=== PATIENT | female | born 1945 | race Caucasian/White ===

== ENCOUNTER 2016-10-15 05:14 | Inpatient (IN) ==
[2016-10-15] MEDS ORDERED: VANCOMYCIN INJ 1,000 MG in SODIUM CHLORIDE 0.9% 250 ML IV ONE (06:00)
[2016-10-15] MEDS ORDERED: ceFAZolin 1,000 MG VIAL ONE (06:31)
[2016-10-15] MEDS ORDERED: VANCOMYCIN 1,000 MG VIAL ONE (06:31)
[2016-10-15] MEDS ORDERED: SODIUM CHLORIDE 0.9% 100 ML IV ONE (06:31)
--- NOTE | 2016-10-15 06:52 | History and Physical Update ---
History and Physical Update - History and Physical H&P was reviewed, the patient examined and there: are no changes in the patients condition since last H&P was completed.
[2016-10-15] MEDS ORDERED: ONDANSETRON 4 MG/2 ML VIAL IV PRN (06:59)
[2016-10-15] MEDS ORDERED: NALOXONE 0.4 MG/ML VIAL IV PRN (06:59)
[2016-10-15] MEDS ORDERED: PROMETHAZINE 25 MG/1 ML VIAL IM PRN (06:59)
[2016-10-15] MEDS ORDERED: LACTULOSE 20 GM/30 ML UDCUP PO PRN (06:59)
[2016-10-15] MEDS ORDERED: MORPHINE 2 MG/1 ML SYRINGE IV PRN (06:59)
[2016-10-15] MEDS ORDERED: BISACODYL 10 MG SUPP RECTAL PRN (06:59)
[2016-10-15] MEDS ORDERED: MAGNESIUM HYDROXIDE SUSP 30 ML UDCUP PO PRN (06:59)
[2016-10-15] MEDS ORDERED: diphenhydrAMINE CAP 25 MG CAPSULE PO PRN (06:59)
[2016-10-15] MEDS ORDERED: NITROGLYCERIN SL 0.4 MG TABLET SL PRN (07:02)
[2016-10-15] MEDS ORDERED: MECLIZINE 25 MG TABLET PO PRN (07:02)
[2016-10-15] MEDS ORDERED: ROPIVACAINE 0.5% 30 ML VIAL ONE (07:20)
[2016-10-15] MEDS: LACTATED RINGERS 1,000 ML IV SCH ×3 (07:22→21:21)
[2016-10-15] MEDS ORDERED: MIDAZOLAM 2 MG/2 ML VIAL ONE (08:51)
[2016-10-15] MEDS ORDERED: fentaNYL 100 MCG/2 ML VIAL ONE (08:51)
[2016-10-15] MEDS ORDERED: SODIUM CHLORIDE 0.9% 200 ML IV ONE (08:51)
[2016-10-15] MEDS ORDERED: ACETAMINOPHEN 1,000 MG/100 ML VIAL IV ONE (08:51)
--- NOTE | 2016-10-15 09:11 | XRay Report ---
Exam: XR knee 2V RT Date: 10/15/2016 7:02 AM Indication: Follow-up total knee replacement Comparison: None Technical: AP lateral Findings: Total knee prosthesis has been placed. Osteotomy in the posterior aspect patella. Surgical clips are present and surgical drain with vacuum Hemovac present. Long leg immobilizer is present. No obvious fracture present. The distal femoral and tibial components are intact. Small amount of subcutaneous air present. Impression: 1. Satisfactory total knee replacement 2. Surgical drains and leg immobilizer noted. PROCEDURE INTERPRETED AT [facility] ([facility]) DEPARTMENT OF RADIOLOGY Final Report Signed by: Dr. Darrell Castillo
[2016-10-15] MEDS: MORPHINE PCA 30 MG/30 ML SYRINGE IV SCH (09:15)
[2016-10-15 11:01] LABS: Basophils % 0.3 % (0.0-0.8); Eosinophils # 0.1 10*3/uL (0.0-0.87); Eosinophils % 1.2 % (0.00-10.9); Hematocrit 35.3 VOL% (35.7-47.0); Hemoglobin 11.8 GM/DL (12.0-16.0); Immature Granulocytes % 0.6 %; Immature Granulocytes Absolute 0.04 #; Lymphocytes % 15.1 % (21.3-54.2); Mean Corpuscular HGB Conc 33.4 GM/DL (32-36); Mean Corpuscular Hemoglobin 32 PG (27-34); Mean Corpuscular Volume 94.6 FL (87-102); Mean Platelet Volume 10.4 FL (9.6-12.0); Monocytes # 0.5 10*3/uL (0.11-0.8); Monocytes % 7.6 % (1.7-12.7); Neutrophils # 4.9 10*3/uL (1.4-7.4); Neutrophils % 75.2 % (38.7-73.9); Platelet Count 130 T/CUMM (130-400); Red Blood Count 3.73 MC/CUMM (3.8-5.5); Red Cell Distribution Width 13.6 % (9.3-17.3); White Blood Count 6.5 T/CUMM (4-12)
[2016-10-15] MEDS: ROSUVASTATIN 10 MG TABLET PO SCH (11:08)
[2016-10-15] MEDS: MELOXICAM 7.5 MG TABLET PO SCH ×2 (11:09→16:25)
[2016-10-15] MEDS: PREGABALIN 75 MG CAPSULE PO SCH ×3 (11:09→21:19)
[2016-10-15] MEDS: ASPIRIN EC 81 MG TABLET PO SCH (11:09)
[2016-10-15] MEDS: TICAGRELOR 90 MG TABLET PO SCH ×2 (11:09→21:19)
[2016-10-15] MEDS: PANTOPRAZOLE 40 MG TABLET PO SCH ×2 (11:09→21:19)
[2016-10-15] MEDS: DOCUSATE SODIUM 100 MG CAPSULE PO SCH ×2 (11:09→21:19)
[2016-10-15 11:30] LABS: Calcium 8.5 MG/DL (8.5-10.1); Osmolality,Calculated 280.4 MOS/KG (273-304); Potassium 5.2 MMOL/L (3.5-5.1)
[2016-10-15 11:33] LABS: Hypochromasia 1+; Microcytosis Slight
--- NOTE | 2016-10-15 13:17 | Cardiology Consult Note ---
Ash Malcolm April RN, am scribing for, and in the presence of, Cody Amor MD 13:16. Assessment and Plan - Time spent with patient Time spent with patient: Greater than 30 minutes (Due to assessment, planning, documentation, medication review) (1) Status post right knee replacement Status: Acute Assessment and plan: Doing well from a cardiac standpoint. Current Visit: Yes (2) CAD (coronary artery disease) Status: Chronic Assessment and plan: His had previous intervention and recent preoperative stress testing revealed no evidence for ischemia. Current Visit: Yes Qualifiers: Coronary Disease-Associated Artery/Lesion type: [place] artery [place] vs. transplanted heart: [place] heart Associated angina: without angina Qualified Code(s): I25.10 - Atherosclerotic heart disease of [place] coronary artery without angina pectoris (3) Hypercholesterolemia Status: Chronic Assessment and plan: On statin drugs which need to be continued. Current Visit: Yes (4) Hypertension Status: Chronic Assessment and plan: Blood pressure stable post surgery. Current Visit: No History of Present Illness - Data of Consult Patient: known to practice within the last 3 years Consult date: 10/15/16 Requesting Physician: Ariel Huynh Jr. - Consult Narrative Reason for consult: Follow postoperatively History of present illness: Benzene Operator: Dr. Strong Ms. Wayne is a 71 year old female who is routinely followed by Dr. Strong with a history of CAD, hypertension, GERD, dyslipidemia, and hypothyroidism. She had proximal and mid RCA stent August 11, 2014 and proximal LAD stent August 24, 2014. She had a normal stress test done in Dr. Strong's office September 18, 2016 in anticipation of right knee replacement. Carotid ultrasound done in Dr. Strong's office September 23, 2016 with 1-39% stenosis in the proximal right and left internal carotid arteries. Dr. Strong that should be low risk for the planned surgery. Other surgical history includes cholecystectomy, hysterectomy , bilateral cataract, gastric bypass, tonsillectomy, appendectomy, amputation of toe on right foot. Family history is positive for father with [place]. She reports she does not smoke, stating she quit about 40 years ago. She was admitted today for planned right knee replacement with Dr. Lino Donnelly. We are seeing her postoperatively. She denies any chest pain, shortness of breath, palpitations, or dizziness. Dressing to right knee is dry and intact. Her blood pressure has been on the low side since surgery. Currently it is 88/ 50, she is tolerating this well. Her home medications have been restarted. She is doing well has eaten some lunch. Vital signs remained stable. CC: Ariel Huynh Jr., MD - Home Medications and Allergies Home Medications: Home Medications Medication Instructions Recorded Confirmed Type Nitroglycerin Sl Tab [Nitrostat] 0.4 mg SL Q5M PRN #30 tablet 08/11/14 10/15/16 Rx Ticagrelor [Brilinta] 90 mg PO BID #60 tablet 08/11/14 10/15/16 Rx Meclizine [Antivert] 25 mg PO QID PRN #0 tablet 10/20/14 10/15/16 Rx Aspirin EC Tab 81 mg PO DAILY 12/28/14 10/15/16 History Omeprazole [Prilosec] 20 mg PO BID 03/30/15 10/15/16 History Pregabalin [Lyrica] 150 mg PO TID 03/30/15 10/15/16 History Meloxicam 7.5 mg PO BID W/MEALS #60 tablet 04/01/15 10/15/16 Rx Rosuvastatin Calcium [Crestor] 5 mg PO QOTHER DAY 10/02/16 10/15/16 History clonazePAM [Klonopin] 1 mg PO BEDTIME 10/02/16 10/15/16 History Allergies/Adverse Reactions: Allergies Allergy/AdvReac Type Severity Reaction Status Date / Time diazepam [From Valium] AdvReac Severe RASH Verified 10/15/16 06:12 duloxetine [From Cymbalta] AdvReac Severe Confusion Verified 10/15/16 06:12 - Constitutional Constitutional: Present: as per HPI - EENT Eyes: Present: requires corrective lense. Absent: blurry vision Ears: Absent: decreased hearing, ear pain Nose, mouth and throat: Present: headache(s). Absent: dysphagia, epistaxis, hoarseness, neck pain, sore throat - Cardiovascular Cardiovascular: Absent: chest pain at rest, chest pain with activity, diaphoresis, dyspnea, dyspnea on exertion, edema, radiating jaw, neck or arm pain, lightheadedness, orthopnea, palpitations - Respiratory Respiratory: Absent: cough, dyspnea, hemoptysis, dyspnea on exertion, wheezing - Gastrointestinal Gastrointestinal: Present: constipation. Absent: abdominal pain, diarrhea, hematemesis, hematochezia, melena, nausea, vomiting - Genitourinary Genitourinary: Absent: dysuria, hematuria - Musculoskeletal Musculoskeletal: Present: back pain, limited range of motion, muscle weakness - Neurological Neurological: Present: abnormal gait, frequent falls, headache(s). Absent: abnormal speech, confusion, dizziness, syncope - Psychiatric Psychiatric: Absent: anxiety, depression - Endocrine Endocrine: Present: fatigue - Hematologic/Lymphatic Hematologic/Lymphatic: Present: easy bruising. Absent: easy bleeding Medical,Surgical,& Family Hx - Medical History Cardio: History of: CAD, Hypertension Neurology: History of: Peripheral Neuropathy (feet) HEENT: History of: Eye Problem (glasses), Dental Problems (Partial Upper) Endocrine: History of: Dyslipidemia Respiratory: History of: Bronchitis (patient states every once in a while) Genitourinary: History of: Recurring Urinary Tract Infections Gastrointestinal: History of: Clostridium Difficile (x4), GERD, Hemorrhoids ( patient states she had in the past), GI Problems (gastric bypass surgery 36 years ago;Constipation) Musculoskeletal: History of: Amputation (Rt 4th Toe), Back/Neck Problems ( patient states sciatic nerve issues and had epidural from the pain clinic) Hematology: History of: Anemia (patient states history of anemia), Clotting Problems (blood clot in stomach 1986) Other: History of: MRSA (STOMACH, PSUEDOMONAS), Miscellaneous Medical Problems ( C DIFF 09/2014) - Surgical History Cardiac Surgeries: Sugical HX of: Cardiac Catheterization (5 stents) HEENT Surgeries: Surgical HX of: Eye Surgery (bilateral cataract sx), Tonsilectomy & Adenoidectomy Abdominal Surgeries: Surgical HX of: Abdominal Surgery, Appendectomy, Cholecystectomy, Colonoscopy (2014 Dr. Guevara Fecal Implant to rid C-Diff), Gastric Bypass Surgery (patient states in 1977) Reproductive Surgeries: Surgical HX of;: Breast Surgery (bx on right breast and lumpectomy), Hysterectomy (patient states in 1962) Orthopedic Surgeries: Surgical HX of;: Total Knee Replacement (Rt 10/2016) - Family History Family History: Reports;: Family Heart Disease (father) - Social History Smoking Status: Former smoker (Quit 40 years ago) Have you smoked in the last 12 months: No Frequency of Alcohol Use: None Type of Drug Use: None Marital Status: Lives With:: Spouse Functional capacity: independent ambulation Physical Examination Vital Signs Temp Pulse Resp BP Pulse Ox 97.8 F 61 16 120/55 97 10/15/16 06:23 10/15/16 06:23 10/15/16 06:23 10/15/16 06:23 10/15/16 06:23 General: Present: Appears Well, No Apparent Distress HEENT: Present: PERRL, Mucus Membranes Moist Neck: Present: Supple Neck, Midline Trachea, Bruit Cardiac: Present: Reg Rate and Rhythm, No Murmur, Bradycardia Lungs: Present: Normal Breath Sounds, No Wheeze, Rales, Rhonchi Neuro: Absent: Resting Tremor, Essential Tremor Abdomen: Present: Soft, Active Bowel Sounds, Non-Tender. Absent: Distended Skin: Absent: Rash, Suspicious Lesions Incision: Present: Incision Site (Dressing noted to right knee) Musculoskeletal: Present: Decreased Range of Motion, Pain in Joint Gait: Present: Poor Gait Extremities: Present: No Edema, Normal Upper Extr. Pulses, Normal Lower Extr. Pulses. Absent: Normal Gait Result/EKG - Labs CBC & BMP: 10/15/16 10:54 10/15/16 10:54 Lab Results: I have reviewed the past 24 hour labs Labs: Laboratory Results - last 24 hr 10/15/16 10/15/16 06:06 10:54 WBC 6.5 RBC 3.73 L Hgb 11.8 L Hct 35.3 L MCV 94.6 MCH 32 MCHC 33.4 RDW 13.6 Plt Count 130 MPV 10.4 Neut % (Auto) 75.2 H Lymph % (Auto) 15.1 L [place] % (Auto) 7.6 Eos % (Auto) 1.2 Baso % (Auto) 0.3 Neut # (Auto) 4.9 Lymph # (Auto) 1.0 L [place] # (Auto) 0.5 Eos # (Auto) 0.1 Baso # (Auto) 0.0 Immature Gran % 0.6 Nucleated RBC % 0.0 Immature Gran # 0.04 Nucleated RBCs # 0.00 Blood Type O POSITIVE Antibody Screen Negative [facility] Timothy, MD, personally performed the services described in this documentation, ascribed by Soniya Aleman RN in my presence, and it is both accurate and complete .
--- NOTE | 2016-10-15 14:04 | Operative Note ---
DATE OF SURGERY: 10/15/2016 PREOPERATIVE DIAGNOSIS: OSTEOARTHRITIS, RIGHT KNEE. POSTOPERATIVE DIAGNOSIS: OSTEOARTHRITIS, RIGHT KNEE. OPERATIVE PROCEDURE: RIGHT TOTAL KNEE ([place]) SURGEON: Ariel Huynh Jr., MD RESEARCH GEOLOGIST: Dr. Thomas. ANESTHESIA: Spinal. INDICATIONS: A 71-year-old white female with severe osteoarthritis to right knee. She has maximized conservative treatment through the years, presenting recently for reevaluation. She is not getting relief with conservative measures and presents today for elective right total knee. OPERATIVE PROCEDURE: The patient was taken to the operating room under general anesthetic, positione d in the supine position. The right lower extremity was positioned and prepped and draped in the usu al sterile manner. She received Ancef and Vancomycin preoperatively. The limb was elevated and exsa nguinated, and the tourniquet inflated to 275 mmHg. A midline incision was made over the anterior as pect of the right knee. Sharp dissection was carried down through skin and subcutaneous tissue. A m edian parapatellar arthrotomy was performed with the knee revealing extensive tricompartmental degene rative changes. Intramedullary alignment guides were used to make the appropriate cuts about the dis tere femur and proximal tibia. The femur was sized to a 4 and the tibia to a 3. A 6-mm fixed-bearing spacer was selected. The PCL was being retained. After removal of all the trial components, the pe rmanent implants were cemented in place. The patellar was resurfaced with a 35-button. After the ce ment hardened, the knee was irrigated and closed in a standard fashion using a #1 Vicryl for the arth rotomy, 2-0 Vicryl for the subcutaneous layer, and collin for skin. Tourniquet was deflated prior t o wound closure at 19 minutes. Sterile dressings were applied. She was taken to recovery room in a stable condition. ESTIMATED BLOOD LOSS: 100 cc. COMPLICATIONS: None. DRAINS: Times 2. COUNTS: Correct.
--- NOTE | 2016-10-15 14:37 | Orthopedic Progress Note ---
Orthopedics - Subjective Interval history: Postop check neurovascular intact comfortable discussed up in a.m. Exam - Constitutional Vitals: Period Temp Pulse Resp BP Sys/Burks Pulse Ox Last 24 Hr 97.5 F-97.9 F 45-68 16-18 83-132/43-72 97-100 Results - Labs CBC & BMP: 10/15/16 10:54 10/15/16 10:54
--- NOTE | 2016-10-15 18:22 | Family Practice History&Phys ---
Assessment and Plan (1) Status post right knee replacement Status: Acute Assessment and plan: Patient is status post right total knee replacement. She is presently doing well with no acute problems noted. Current Visit: Yes (2) CAD (coronary artery disease) Status: Chronic Assessment and plan: Patient's coronary artery disease is stable with present medications. We'll monitor closely. Current Visit: Yes Qualifiers: Coronary Disease-Associated Artery/Lesion type: [place] artery [place] vs. transplanted heart: [place] heart Associated angina: without angina Qualified Code(s): I25.10 - Atherosclerotic heart disease of [place] coronary artery without angina pectoris (3) Status post insertion of drug-eluting stent into left anterior descending ( LAD) artery Status: Chronic Assessment and plan: Patient is presently stable on present medications. She's had recent cardiac evaluation is being followed by cardiology Current Visit: No (4) hyperlipidemia Status: Chronic Assessment and plan: Stable on present medications Current Visit: Yes (5) Hypertension Status: Chronic Current Visit: No (6) Peripheral neuropathy Status: Chronic Assessment and plan: Patient has nondiabetic peripheral neuropathy stable on present medications Current Visit: No (7) S/P gastric bypass Status: Chronic Assessment and plan: Patient is status post gastric bypass. No problems at present Current Visit: No History of Present Illness Chief complaint: severe degenerative joint disease right knee History of present illness: Ms. Wayne is a 71 year old female Patient is a 71-year-old white female well-known to me who is now status post total right knee replacement. Patient is doing well with no acute problems noted . She denies any chest pain, shortness of breath, or other related symptoms. She does have some pain from the surgical site but controlled with present medications. I have reviewed lab and other studies. Hopefully patient will do well I will follow with you thank you Home Medications Medication Instructions Recorded Confirmed Type Nitroglycerin Sl Tab [Nitrostat] 0.4 mg SL Q5M PRN #30 tablet 08/11/14 10/15/16 Rx Ticagrelor [Brilinta] 90 mg PO BID #60 tablet 08/11/14 10/15/16 Rx Meclizine [Antivert] 25 mg PO QID PRN #0 tablet 10/20/14 10/15/16 Rx Aspirin EC Tab 81 mg PO DAILY 12/28/14 10/15/16 History Omeprazole [Prilosec] 20 mg PO BID 03/30/15 10/15/16 History Pregabalin [Lyrica] 150 mg PO TID 03/30/15 10/15/16 History Meloxicam 7.5 mg PO BID W/MEALS #60 tablet 04/01/15 10/15/16 Rx Rosuvastatin Calcium [Crestor] 5 mg PO QOTHER DAY 10/02/16 10/15/16 History clonazePAM [Klonopin] 1 mg PO BEDTIME 10/02/16 10/15/16 History Allergies Allergy/AdvReac Type Severity Reaction Status Date / Time diazepam [From Valium] AdvReac Severe RASH Verified 10/15/16 06:12 duloxetine [From Cymbalta] AdvReac Severe Confusion Verified 10/15/16 06:12 Medical,Surgical,& Family Hx - Medical History Cardio: History of: CAD, Hypertension, 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) Psychological: History of: Anxiety Disorders (Denies any current anxiety) Neurology: History of: Peripheral Neuropathy (feet) No history of: Seizures HEENT: History of: Eye Problem (glasses), Dental Problems (Partial Upper) No history of: Glaucoma Endocrine: History of: Dyslipidemia Respiratory: History of: Bronchitis (patient states every once in a while) No history of: Pneumonia (Hx Pneum Vac), Respiratory Problems (DOES NOT TAKE FLU VAC) Genitourinary: History of: Recurring Urinary Tract Infections Gastrointestinal: History of: Clostridium Difficile (x4), GERD, Hemorrhoids ( patient states she had in the past), GI Problems (gastric bypass surgery 36 years ago;Constipation) No history of: Hepatitis, Liver Problems, Polyps Musculoskeletal: History of: Amputation (Rt 4th Toe), Back/Neck Problems ( patient states sciatic nerve issues and had epidural from the pain clinic) Hematology: History of: Anemia (patient states history of anemia), Clotting Problems (blood clot in stomach 1986) Other: History of: MRSA (STOMACH, PSUEDOMONAS), Miscellaneous Medical Problems ( C DIFF 09/2014) No history of: Anesthesia Reactions, Cancer - Surgical History Cardiac Surgeries: Sugical HX of: Cardiac Catheterization (5 stents), Cardiac Surgery Thoracic Surgeries: Patient denies;: Organ Transplant Neurologic Surgeries: Patient denies: Neurologic Surgery (patient denies neurological history) HEENT Surgeries: Surgical HX of: Eye Surgery (bilateral cataract sx), Tonsilectomy & Adenoidectomy Abdominal Surgeries: Surgical HX of: Abdominal Surgery, Appendectomy, Cholecystectomy, Colonoscopy (2014 Dr. Guevara Fecal Implant to rid C-Diff), Gastric Bypass Surgery (patient states in 1977) Reproductive Surgeries: Surgical HX of;: Breast Surgery (bx on right breast and lumpectomy), Hysterectomy (patient states in 1963) Orthopedic Surgeries: Surgical HX of;: Orthopedic Surgery (RKS), Total Knee Replacement (Rt 10/2016) - Family History Family History: Reports;: Family Heart Disease (father), Family Hypertension - Social History Smoking Status: Former smoker (Quit 40 years ago) Have you smoked in the last 12 months: No Frequency of Alcohol Use: None Type of Drug Use: None Marital Status: Lives With:: Spouse Functional capacity: independent ambulation Exam - Constitutional Vitals: Period Temp Pulse Resp BP Sys/Burks Pulse Ox Last 24 Hr 97.5 F-98.1 F 45-68 16-18 83-144/43-72 97-100 General appearance: mild distress - Head Head exam: Present: normal inspection - Eye Eye exam: Present: EOMI - ENT ENT exam: Present: normal exam - Neck Neck exam: Present: normal inspection - Respiratory Respiratory exam: Present: clear to auscultation bilaterally - Cardiovascular Cardiovascular exam: Present: regular rate and rhythm - GI/Abdominal GI/Abdominal exam: Present: normal bowel sounds, soft - Extremities Exam Extremities exam: Present: other (has dressing on right leg. Full range of motion in other extremities normal pulses.) - Back Exam Back exam: Present: normal inspection - Neurological Exam Neurological exam: Present: alert, oriented X3 - Psychiatric Psychiatric exam: Present: normal affect - Skin Skin exam: Present: normal color Results - Labs CBC & BMP: 10/15/16 10:54 10/15/16 10:54
[2016-10-15] MEDS: FONDAPARINUX 2.5 MG/0.5 ML SYRINGE SUBCUT SCH (21:19)
[2016-10-15] MEDS: clonazePAM 0.5 MG TABLET PO SCH (21:19)
[2016-10-16 06:23] LABS: Basophils % 0.2 % (0.0-0.8); Eosinophils # 0.1 10*3/uL (0.0-0.87); Eosinophils % 1.3 % (0.00-10.9); Hematocrit 32.6 VOL% (35.7-47.0); Immature Granulocytes % 0.4 %; Immature Granulocytes Absolute 0.02 #; Lymphocytes # 0.9 10*3/uL (1.4-4.0); Lymphocytes % 16.4 % (21.3-54.2); Mean Corpuscular HGB Conc 33.7 GM/DL (32-36); Mean Corpuscular Hemoglobin 31 PG (27-34); Mean Corpuscular Volume 93.1 FL (87-102); Mean Platelet Volume 10.6 FL (9.6-12.0); Monocytes # 0.6 10*3/uL (0.11-0.8); Monocytes % 9.8 % (1.7-12.7); Neutrophils % 71.9 % (38.7-73.9); Platelet Count 123 T/CUMM (130-400); Red Cell Distribution Width 13.7 % (9.3-17.3); White Blood Count 5.6 T/CUMM (4-12)
[2016-10-16 06:25] LABS: Apearance,Urine CLEAR (Clear); Bacteria,Urine Occasional /HPF (Few); Bilirubin,Urine Negative (Negative); Blood, Urine Negative (Negative); Glucose,Urine (UA) Negative (Negative); Ketones,Urine Negative (Negative); Nitrite,Urine Negative (Negative); Protein,Urine Negative; RBC,Urine 1 /HPF (0-4); Urine Color Straw (Yellow); Urine Specific Gravity 1.008 (1.001-1.035); Urine Urobilinogen < 2.0 EU/DL (0.2-1.0); WBC,Urine 11 /HPF (0-6)
[2016-10-16 06:50] LABS: Calcium 8.3 MG/DL (8.5-10.1); Osmolality,Calculated 278.5 MOS/KG (273-304)
[2016-10-16 06:58] LABS: Magnesium 1.9 MG/DL (1.8-2.4); Thyroid Stimulating Hormone 0.515 uIU/ml (0.358-3.74)
[2016-10-16] MEDS: MELOXICAM 7.5 MG TABLET PO SCH ×2 (07:40→16:04)
[2016-10-16] MEDS: ASPIRIN EC 81 MG TABLET PO SCH ×2 (07:41→07:59)
[2016-10-16] MEDS: PREGABALIN 75 MG CAPSULE PO SCH ×4 (07:41→21:29)
[2016-10-16] MEDS: TICAGRELOR 90 MG TABLET PO SCH ×3 (07:41→21:29)
[2016-10-16] MEDS: DOCUSATE SODIUM 100 MG CAPSULE PO SCH ×3 (07:41→21:29)
[2016-10-16] MEDS: PANTOPRAZOLE 40 MG TABLET PO SCH ×3 (07:41→21:29)
[2016-10-16] MEDS: LACTATED RINGERS 1,000 ML IV SCH ×2 (07:42→11:21)
[2016-10-16] MEDS: MORPHINE PCA 30 MG/30 ML SYRINGE IV SCH (07:42)
--- NOTE | 2016-10-16 08:53 | Orthopedic Progress Note ---
Orthopedics - Subjective Interval history: Hemoglobin 11 discussed drain removed ready for PT neurovascular intact Exam - Constitutional Vitals: Period Temp Pulse Resp BP Sys/Burks Pulse Ox Last 24 Hr 97.5 F-100.0 F 45-80 16-18 83-144/43-72 94-100 Results - Labs CBC & BMP: 10/16/16 06:06 10/16/16 06:06
--- NOTE | 2016-10-16 13:23 | Pathology Report from [facility] ---
[facility] [place] ACCESSION # : [id number] PATIENT NAME : Beverly Espana ORDERING DR : NINA BARBER JR, MD CLINICAL HX: RT knee osteoarthritis POST-OP DX: Same SPECIMEN INFO: RT knee bone GROSS DESCRIPTION: Received in formalin labeled BEVERLY ESPANA is an aggregate of bone and cartilage measuring 8.0 x 7.5 cm. The articular surfaces are focally degenerative with large areas of subchondral eburnation seen. Heavy Equipment Supervisor tissue is submitted in one cassette. DIAGNOSIS FOR BEVERLY ESPANA: RIGHT KNEE BONE, TOTAL REPLACEMENT: Fragments of bone and cartilage with degenerative/ osteoarthritic changes. COLLECTED DATE: 10/15/2016 [facility] [place] REPORT DATE: 10/16/2016 ELECTRONICALLY SIGNED BY: Dejah De Los Santos M.D. 10/16/2016 - 11:10:52 [facility]
--- NOTE | 2016-10-16 15:58 | Cardiology Progress Note ---
Ash Malcolm April, RN, am scribing for, and in the presence of, Cody Amor MD 15:58. Assessment and Plan (1) Status post right knee replacement Status: Acute Assessment and plan: Doing well from a cardiac standpoint. Current Visit: Yes (2) CAD (coronary artery disease) Status: Chronic Assessment and plan: She has had previous intervention, recent preoperative stress testing revealed no evidence for ischemia. Current Visit: Yes Qualifiers: Coronary Disease-Associated Artery/Lesion type: [place] artery [place] vs. transplanted heart: [place] heart Associated angina: without angina Qualified Code(s): I25.10 - Atherosclerotic heart disease of [place] coronary artery without angina pectoris (3) Hypercholesterolemia Status: Chronic Assessment and plan: On statin drugs which need to be continued. Current Visit: Yes (4) Hypertension Status: Chronic Assessment and plan: Blood pressure has been stable postoperatively.. 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 Strong Ms. aWyne is a 71 year old female who is routinely followed by Dr. Strong with a history of CAD, hypertension, GERD, dyslipidemia, and hypothyroidism. She had proximal and mid RCA stent August 11, 2014 and proximal LAD stent August 24, 2014. She had a normal stress test done in Dr. Strong's office September 18, 2016 in anticipation of right knee replacement. Carotid ultrasound done in Dr. Strong's office September 23, 2016 with 1-39% stenosis in the proximal right and left internal carotid arteries. Dr. Strong that should be low risk for the planned surgery. Other surgical history includes cholecystectomy, hysterectomy , bilateral cataract, gastric bypass, tonsillectomy, appendectomy, amputation of toe on right foot. Family history is positive for father with [place]. She reports she does not smoke, stating she quit about 40 years ago. She was admitted October 15 for planned right knee replacement with Dr. Lino Donnelly. October 16, 2016: Ms. Wayne is day 2 status post right knee replacement. She states she has had physical therapy and set up in the chair for about an hour. She denies any chest pain, shortness of breath, palpitations, or dizziness. Her pressures have improved overnight, this morning it is 118/61. Heart rates have been in the 70s. Patient personally interviewed and examined today and chart reviewed. As noted above. She is having some pain from her surgery. She doing well. From cardiac standpoint she is doing well without any chest pain shortness of breath other symptomatology. Exam (Progress Note) - Constitutional Vitals: Period Temp Pulse Resp BP Sys/Burks Pulse Ox Last 24 Hr 98.1 F-100.0 F 51-80 16-18 107-144/54-72 94-100 General appearance: normal weight, no acute distress - Head Head exam: Absent: abrasion, hematoma - Eye Eye exam: Absent: periorbital swelling, laceration to eyelids - Respiratory Respiratory exam: Present: clear to auscultation bilaterally. Absent: accessory muscle use, chest wall tenderness - Cardiovascular Cardiovascular exam: Present: regular rate and rhythm. Absent: rubs, systolic murmur - GI/Abdominal GI/Abdominal exam: Present: normal bowel sounds, soft. Absent: distended, tenderness - Extremities Exam Extremities exam: Present: edema, other (Dressing and immobilizer to right knee) - Neurological Exam Neurological exam: Present: alert, oriented X3 - Psychiatric Psychiatric exam: Present: normal affect, normal mood - Skin Skin exam: Present: warm, dry Result/EKG - Labs CBC & BMP: 10/16/16 06:06 10/16/16 06:06 Lab Results: I have reviewed the past 24 hour labs Labs: Laboratory Results - last 24 hr 10/15/16 10/15/16 10/16/16 10:54 10:54 06:01 WBC RBC Hgb Hct MCV MCH MCHC RDW Plt Count MPV Neut % (Auto) Lymph % (Auto) [place] % (Auto) Eos % (Auto) Baso % (Auto) Neut # (Auto) Lymph # (Auto) [place] # (Auto) Eos # (Auto) Baso # (Auto) Immature Gran % Nucleated RBC % Immature Gran # Nucleated RBCs # Hypochromasia 1+ Microcytosis Slight Sodium 140 Potassium 5.2 H Chloride 105 Carbon Dioxide 31 Anion Gap 9.2 BUN 21 H Creatinine 0.50 L GFR Calculation 84 BUN/Creatinine Ratio 42.00 H Glucose 80 Calculated Osmolality 280.4 Calcium 8.5 Magnesium TSH 3rd Generation Urine Color Straw Urine Appearance Clear Urine pH 7.0 Ur Specific [place] 1.008 Urine Protein Negative Urine Glucose (UA) Negative Urine Ketones Negative Urine Blood Negative Urine Nitrate Negative Urine Bilirubin Negative Urine Urobilinogen < 2.0 H Urine Leukocytes Trace Urine RBC 1 Urine WBC 11 Urine Bacteria Occasional Ur Culture Indicated? Results to follow 10/16/16 10/16/16 10/16/16 06:06 06:06 06:06 WBC 5.6 RBC 3.50 L Hgb 11.0 L Hct 32.6 L MCV 93.1 MCH 31 MCHC 33.7 RDW 13.7 Plt Count 123 L MPV 10.6 Neut % (Auto) 71.9 Lymph % (Auto) 16.4 L [place] % (Auto) 9.8 Eos % (Auto) 1.3 Baso % (Auto) 0.2 Neut # (Auto) 4.0 Lymph # (Auto) 0.9 L [place] # (Auto) 0.6 Eos # (Auto) 0.1 Baso # (Auto) 0.0 Immature Gran % 0.4 Nucleated RBC % 0.0 Immature Gran # 0.02 Nucleated RBCs # 0.00 Hypochromasia Microcytosis Sodium 139 Potassium 4.0 Chloride 104 Carbon Dioxide 30 Anion Gap 9.0 BUN 14 Creatinine 0.50 L GFR Calculation 84 BUN/Creatinine Ratio 28.00 H Glucose 118 H Calculated Osmolality 278.5 Calcium 8.3 L Magnesium 1.9 TSH 3rd Generation 0.515 Urine Color Urine Appearance Urine pH Ur Specific [place] Urine Protein Urine Glucose (UA) Urine Ketones Urine Blood Urine Nitrate Urine Bilirubin Urine Urobilinogen Urine Leukocytes Urine RBC Urine WBC Urine Bacteria Ur Culture Indicated? I, Cody Amor MD, personally performed the services described in this documentation, ascribed by Soniya Aleman RN in my presence, and it is both accurate and complete .
--- NOTE | 2016-10-16 18:45 | Family Practice Progress Note ---
Family Practice - PN: Subj Interval history: Patient is doing quite well. Her vitals are stable. No new problems are noted. Patient sitting in chair and has ambulated with physical therapy. Reviewed lab studies. Physical examination is stable at present. We will continue present treatment plan Exam (Progress Note) - Constitutional Vitals: Period Temp Pulse Resp BP Sys/Burks Pulse Ox Last 24 Hr 97.5 F-100.0 F 66-80 18-18 110-164/58-80 94-97 Results - Labs CBC & BMP: 10/16/16 06:06 10/16/16 06:06 Assessment and Plan (1) Status post right knee replacement Status: Acute Assessment and plan: Patient is status post right total knee replacement. She is presently doing well with no acute problems noted. Current Visit: Yes (2) CAD (coronary artery disease) Status: Chronic Assessment and plan: Patient's coronary artery disease is stable with present medications. We'll monitor closely. Current Visit: Yes Qualifiers: Coronary Disease-Associated Artery/Lesion type: [place] artery [place] vs. transplanted heart: [place] heart Associated angina: without angina Qualified Code(s): I25.10 - Atherosclerotic heart disease of [place] coronary artery without angina pectoris (3) Status post insertion of drug-eluting stent into left anterior descending ( LAD) artery Status: Chronic Assessment and plan: Patient is presently stable on present medications. She's had recent cardiac evaluation is being followed by cardiology Current Visit: No (4) hyperlipidemia Status: Chronic Assessment and plan: Stable on present medications Current Visit: Yes (5) Hypertension Status: Chronic Current Visit: No (6) Peripheral neuropathy Status: Chronic Assessment and plan: Patient has nondiabetic peripheral neuropathy stable on present medications Current Visit: No (7) S/P gastric bypass Status: Chronic Assessment and plan: Patient is status post gastric bypass. No problems at present Current Visit: No
[2016-10-16] MEDS: FONDAPARINUX 2.5 MG/0.5 ML SYRINGE SUBCUT SCH (21:28)
[2016-10-16] MEDS: clonazePAM 0.5 MG TABLET PO SCH (21:29)
[2016-10-17] MEDS: LACTATED RINGERS 1,000 ML IV SCH (00:25)
[2016-10-17 05:01] LABS: Basophils % 0.1 % (0.0-0.8); Eosinophils # 0.1 10*3/uL (0.0-0.87); Eosinophils % 1.2 % (0.00-10.9); Hematocrit 33.3 VOL% (35.7-47.0); Hemoglobin 11.3 GM/DL (12.0-16.0); Immature Granulocytes % 0.6 %; Immature Granulocytes Absolute 0.04 #; Lymphocytes # 1.5 10*3/uL (1.4-4.0); Lymphocytes % 20.8 % (21.3-54.2); Mean Corpuscular HGB Conc 33.9 GM/DL (32-36); Mean Corpuscular Hemoglobin 31 PG (27-34); Mean Platelet Volume 11.2 FL (9.6-12.0); Monocytes # 0.6 10*3/uL (0.11-0.8); Monocytes % 7.7 % (1.7-12.7); Neutrophils # 5.1 10*3/uL (1.4-7.4); Neutrophils % 69.6 % (38.7-73.9); Platelet Count 121 T/CUMM (130-400); Red Blood Count 3.62 MC/CUMM (3.8-5.5); Red Cell Distribution Width 13.5 % (9.3-17.3); White Blood Count 7.3 T/CUMM (4-12)
--- NOTE | 2016-10-17 08:20 | Family Practice Progress Note ---
Family Practice - PN: Subj Interval history: Patient has continued to improve and reference to her knee replacement. She was up in chair and ambulated yesterday with physical therapy. Labs and vitals are stable. Physical examination is stable. Main problem today is patient has a known esophageal stricture. Apparently has been bothering her for some time and did not mention it until this admission.. Patient states that she is not able to eat soft foods are mostly liquids because they are hanging in her midesophagus.. Patient states she is afraid to eat anything now because of the stricture. Will consult Dr. Guevara to evaluate. Otherwise continue present treatment plan Exam (Progress Note) - Constitutional Vitals: Period Temp Pulse Resp BP Sys/Burks Pulse Ox Last 24 Hr 97.5 F-98.6 F 66-78 16-19 122-164/59-80 94-97 Results - Labs CBC & BMP: 10/17/16 03:22 10/16/16 06:06 Assessment and Plan (1) Status post right knee replacement Status: Acute Assessment and plan: Patient is status post right total knee replacement. She is presently doing well with no acute problems noted. Current Visit: Yes (2) CAD (coronary artery disease) Status: Chronic Assessment and plan: Patient's coronary artery disease is stable with present medications. We'll monitor closely. Current Visit: Yes Qualifiers: Coronary Disease-Associated Artery/Lesion type: [place] artery [place] vs. transplanted heart: [place] heart Associated angina: without angina Qualified Code(s): I25.10 - Atherosclerotic heart disease of [place] coronary artery without angina pectoris (3) Status post insertion of drug-eluting stent into left anterior descending ( LAD) artery Status: Chronic Assessment and plan: Patient is presently stable on present medications. She's had recent cardiac evaluation is being followed by cardiology Current Visit: No (4) hyperlipidemia Status: Chronic Assessment and plan: Stable on present medications Current Visit: Yes (5) Hypertension Status: Chronic Current Visit: No (6) Peripheral neuropathy Status: Chronic Assessment and plan: Patient has nondiabetic peripheral neuropathy stable on present medications Current Visit: No (7) S/P gastric bypass Status: Chronic Assessment and plan: Patient is status post gastric bypass. No problems at present Current Visit: No
--- NOTE | 2016-10-17 09:47 | Gastrointestinal Consult Note ---
Assessment and Plan (1) Dysphagia Status: Acute Assessment and plan: 10/17-reports of recent dysphagia over the last couple of days that is worsened from her baseline prior to surgery. Feels this is related to positional changes while eating. Last EGD approximately 2-3 years ago with dilation, with similar nature of dysphagia at this time. History of gastric bypass surgery noted. Continue to follow at this time and plan an endoscopy for possible esophageal stricture when patient has rehabilitated and is ready to proceed. Plan an addendum to followed by Dr. Guevara. Current Visit: Yes History of Present Illness Chief complaint: Dysphagia History of present illness: Ms. Wayne is a 71 year old female who was admitted to the hospital on 10/15 for right knee replacement by Dr. Huynh. She underwent the operation without complication and is done well postoperatively. She began complaining 2 days ago of increased dysphagia to solids liquids and pills when eating since surgery. She has a prior history of esophageal stricture with dilation and EGD which she states the last one was done at [facility] by Dr. Guevara but states it is been at least 2-3 years ago. She states that this feels very similar to her prior dysphagia. She does feel at this time is possibly related to being bedbound since surgery and difficulty with eating while lying down. She states that the food is becoming lodged in her esophagus and she just has to sit and wait for it to pass through. Denies any abdominal pain, epigastric pain, nausea or vomiting. States that she was having minor trouble prior to surgery but not enough to seek treatment for this. She denies any associated weight loss. She is noted to take Mobic as needed for pain. She also takes Brilinta for history of stent placement in 2014. She does have a history of GERD but states her Protonix does control this fairly well. She denies any melena or hematochezia. Patient is noted to have a history of gastric bypass. Last colonoscopies were done in 2014 and again 2016 for recurring Clostridium difficile and fecal transplant. She has not had any further difficulty with this at this time. She currently states that she would not like to proceed with any endoscopy at this time until she is recovered from her knee replacement and feels like she can manage this on her own until this time. Home Medications Medication Instructions Recorded Confirmed Type Nitroglycerin Sl Tab [Nitrostat] 0.4 mg SL Q5M PRN #30 tablet 05/07/15 07/11/17 Rx Ticagrelor [Brilinta] 90 mg PO BID #60 tablet 08/11/14 10/15/16 Rx Meclizine [Antivert] 25 mg PO QID PRN #0 tablet 10/20/14 10/15/16 Rx Aspirin EC Tab 81 mg PO DAILY 12/28/14 10/15/16 History Omeprazole [Prilosec] 20 mg PO BID 03/30/15 10/15/16 History Pregabalin [Lyrica] 150 mg PO TID 03/30/15 10/15/16 History Meloxicam 7.5 mg PO BID W/MEALS #60 tablet 04/01/15 10/15/16 Rx Rosuvastatin Calcium [Crestor] 5 mg PO QOTHER DAY 10/02/16 10/15/16 History clonazePAM [Klonopin] 1 mg PO BEDTIME 10/02/16 10/15/16 History Allergies Allergy/AdvReac Type Severity Reaction Status Date / Time diazepam [From Valium] AdvReac Severe RASH Verified 10/15/16 06:12 duloxetine [From Cymbalta] AdvReac Severe Confusion Verified 10/15/16 06:12 Medical,Surgical,& Family Hx - Medical History Cardio: History of: CAD, Hypertension, 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 Strong) Psychological: History of: Anxiety Disorders (Denies any current anxiety) Neurology: History of: Peripheral Neuropathy (feet) No history of: Seizures HEENT: History of: Eye Problem (glasses), Dental Problems (Partial Upper) No history of: Glaucoma Endocrine: History of: Dyslipidemia Respiratory: History of: Bronchitis (patient states every once in a while) No history of: Pneumonia (Hx Pneum Vac), Respiratory Problems (DOES NOT TAKE FLU VAC) Genitourinary: History of: Recurring Urinary Tract Infections Gastrointestinal: History of: Clostridium Difficile (x4), GERD, Hemorrhoids ( patient states she had in the past), GI Problems (gastric bypass surgery 36 years ago;Constipation) No history of: Hepatitis, Liver Problems, Polyps Musculoskeletal: History of: Amputation (Rt 4th Toe), Back/Neck Problems ( patient states sciatic nerve issues and had epidural from the pain clinic) Hematology: History of: Anemia (patient states history of anemia), Clotting Problems (blood clot in stomach 1986) Other: History of: MRSA (STOMACH, PSUEDOMONAS), Miscellaneous Medical Problems ( C DIFF 09/2014) No history of: Anesthesia Reactions, Cancer - Surgical History Cardiac Surgeries: Sugical HX of: Cardiac Catheterization (5 stents), Cardiac Surgery Thoracic Surgeries: Patient denies;: Organ Transplant Neurologic Surgeries: Patient denies: Neurologic Surgery (patient denies neurological history) HEENT Surgeries: Surgical HX of: Eye Surgery (bilateral cataract sx), Tonsilectomy & Adenoidectomy Abdominal Surgeries: Surgical HX of: Abdominal Surgery, Appendectomy, Cholecystectomy, Colonoscopy (2014 Dr. Guevara Fecal Implant to rid C-Diff), Gastric Bypass Surgery (patient states in 1977) Reproductive Surgeries: Surgical HX of;: Breast Surgery (bx on right breast and lumpectomy), Hysterectomy (patient states in 1962) Orthopedic Surgeries: Surgical HX of;: Orthopedic Surgery (RKS), Total Knee Replacement (Rt 10/2016) - Family History Family History: Reports;: Family Heart Disease (father), Family Hypertension - Social History Smoking Status: Former smoker (Quit 40 years ago) Frequency of Alcohol Use: None Type of Drug Use: None 12 point system: reviewed and no additional remarkable complaints except as stated - Constitutional Constitutional: Present: as per HPI - EENT Eyes: Present: as per HPI Ears: Present: as per HPI Nose, mouth and throat: Present: as per HPI, dysphagia - Cardiovascular Cardiovascular: Present: as per HPI - Respiratory Respiratory: Present: as per HPI - Gastrointestinal Gastrointestinal: Present: as per HPI, dysphagia, heartburn - Genitourinary Genitourinary: Present: as per HPI - Musculoskeletal Musculoskeletal: Present: as per HPI - Neurological Neurological: Present: as per HPI - Psychiatric Psychiatric: Present: as per HPI - Endocrine Endocrine: Present: as per HPI - Hematologic/Lymphatic Hematologic/Lymphatic: Present: as per HPI Exam - Constitutional Vitals: Period Temp Pulse Resp BP Sys/Burks Pulse Ox Last 24 Hr 97.5 F-98.6 F 66-78 16-19 122-164/59-80 94-97 General appearance: normal weight, no acute distress - Head Head exam: Present: normal inspection, normocephalic - Eye Eye exam: Present: other (Lids and conjunctive are unremarkable). Absent: scleral icterus - ENT ENT exam: Present: normal exam, normal oropharynx - Neck Neck exam: Present: normal inspection - Respiratory Respiratory exam: Present: clear to auscultation bilaterally. Absent: rales, rhonchi, wheezes - Cardiovascular Cardiovascular exam: Present: regular rate and rhythm. Absent: diastolic murmur , JVD, systolic murmur - GI/Abdominal GI/Abdominal exam: Present: normal bowel sounds, soft. Absent: ascites, distended, mass, organomegaly, tenderness - Extremities Exam Extremities exam: Present: normal inspection, full ROM - Back Exam Back exam: Present: normal inspection - Neurological Exam Neurological exam: Present: alert, oriented X3 - Psychiatric Psychiatric exam: Present: normal affect, normal mood - Skin Skin exam: Present: normal color, warm, dry Results - Labs CBC & BMP: 10/17/16 03:22 10/16/16 06:06 Lab Results: I have reviewed the past 24 hour labs
[2016-10-17] MEDS: DOCUSATE SODIUM 100 MG CAPSULE PO SCH ×2 (09:48→21:33)
[2016-10-17] MEDS: ROSUVASTATIN 10 MG TABLET PO SCH (09:48)
[2016-10-17] MEDS: ASPIRIN EC 81 MG TABLET PO SCH (09:48)
[2016-10-17] MEDS: TICAGRELOR 90 MG TABLET PO SCH ×2 (09:48→21:33)
[2016-10-17] MEDS: MELOXICAM 7.5 MG TABLET PO SCH ×2 (09:48→18:40)
[2016-10-17] MEDS: PREGABALIN 75 MG CAPSULE PO SCH ×3 (09:48→21:33)
[2016-10-17] MEDS: PANTOPRAZOLE 40 MG TABLET PO SCH ×2 (09:48→21:33)
--- NOTE | 2016-10-17 10:03 | Orthopedic Progress Note ---
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
[2016-10-17] MEDS: MORPHINE PCA 30 MG/30 ML SYRINGE IV SCH (10:27)
--- NOTE | 2016-10-17 10:33 | Cardiology Progress Note ---
Ash Malcolm April, RN, am scribing for, and in the presence of, Cody Amor MD 10:31. Assessment and Plan (1) Status post right knee replacement Status: Acute Assessment and plan: Doing well from a cardiac standpoint. Current Visit: Yes (2) CAD (coronary artery disease) Status: Chronic Assessment and plan: She has had previous intervention, recent preoperative stress testing revealed no evidence for ischemia. She is beyond 1 year since her intervention. Current Visit: Yes Qualifiers: Coronary Disease-Associated Artery/Lesion type: [place] artery [place] vs. transplanted heart: [place] heart Associated angina: without angina Qualified Code(s): I25.10 - Atherosclerotic heart disease of [place] coronary artery without angina pectoris (3) Hypercholesterolemia Status: Chronic Assessment and plan: On statin drugs which need to be continued. Current Visit: Yes (4) Hypertension Status: Chronic Assessment and plan: Blood pressure has been stable. 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 Strong SUMMARY: Ms. Wayne is a 71 year old female who is routinely followed by Dr. Strong with a history of CAD, hypertension, GERD, dyslipidemia, and hypothyroidism. She had proximal and mid RCA stent August 11, 2014 and proximal LAD stent August 24, 2014. She had a normal stress test done in Dr. Strong's office September 18, 2016 in anticipation of right knee replacement. Carotid ultrasound done in Dr. Strong's office September 23, 2016 with 1-39% stenosis in the proximal right and left internal carotid arteries. Dr. Strong that should be low risk for the planned surgery. Other surgical history includes cholecystectomy, hysterectomy, bilateral cataract, gastric bypass, tonsillectomy , appendectomy, amputation of toe on right foot. Family history is positive for father with [place]. She reports she does not smoke, stating she quit about 40 years ago. She was admitted October 15 for planned right knee replacement with Dr. Lino Donnelly. October 16, 2016: Ms. Wayne is day 2 status post right knee replacement. She states she has had physical therapy and set up in the chair for about an hour. She denies any chest pain, shortness of breath, palpitations, or dizziness. Her pressures have improved overnight, this morning it is 118/61. Heart rates have been in the 70s. October 17, 2016: Ms. Wayne is day 3 status post right knee replacement. She just finished her bath and she is short of breath. She states she was not short of breath before the activity. She denies any chest pain or palpitations. She has a known esophageal stricture she told her to increase this morning and this has been bothering her for some time. He has consulted Dr. Guevara to evaluate. Labs are unremarkable. Patient personally interviewed and examined and chart reviewed. Cardiac wray she is stable without chest pain or shortness of breath. She apparently has some possible dysphagia with known history of esophageal strictures. Patient states she though does not want anything done at this time until she has had the ability to recover from her surgery unless it becomes absolutely necessary. She thinks she can swallow better if she can sit up. If she does need EGD and dilation esophagus she can stop her Brilinta since is been greater than [address] Strong apparently though has wanted to continue her Brilinta and the patient states this is what he is instructed her. Brilinta could be restarted after procedure. Since Dr. Ruggiero is following the patient closely she is stable from a cardiac standpoint we will sign off at this time. Please let us know if we can be of any further service from there are any questions that we can answer or assist with. Exam (Progress Note) - Constitutional Vitals: Period Temp Pulse Resp BP Sys/Burks Pulse Ox Last 24 Hr 97.5 F-98.6 F 66-78 16-19 122-164/59-80 94-97 Exam: General appearance: normal weight, no acute distress - Head Head exam: Absent: abrasion, hematoma - Eye Eye exam: Absent: periorbital swelling, laceration to eyelids - Respiratory Respiratory exam: Present: clear to auscultation bilaterally. Absent: accessory muscle use, chest wall tenderness - Cardiovascular Cardiovascular exam: Present: regular rate and rhythm. Absent: rubs, systolic murmur - GI/Abdominal GI/Abdominal exam: Present: normal bowel sounds, soft. Absent: distended, tenderness - Extremities Exam Extremities exam: Present: edema, other (Dressing and immobilizer to right knee) - Neurological Exam Neurological exam: Present: alert, oriented X3 - Psychiatric Psychiatric exam: Present: normal affect, normal mood - Skin Skin exam: Present: warm, dry Result/EKG - Labs CBC & BMP: 10/17/16 03:22 07/12/17 06:06 Lab Results: I have reviewed the past 24 hour labs Labs: Laboratory Results - last 24 hr 10/17/16 03:22 WBC 7.3 D RBC 3.62 L Hgb 11.3 L Hct 33.3 L MCV 92.0 MCH 31 MCHC 33.9 RDW 13.5 Plt Count 121 L MPV 11.2 Neut % (Auto) 69.6 Lymph % (Auto) 20.8 L [place] % (Auto) 7.7 Eos % (Auto) 1.2 Baso % (Auto) 0.1 Neut # (Auto) 5.1 Lymph # (Auto) 1.5 [place] # (Auto) 0.6 Eos # (Auto) 0.1 Baso # (Auto) 0.0 Immature Gran % 0.6 Nucleated RBC % 0.0 Immature Gran # 0.04 Nucleated RBCs # 0.00 [place] John Timothy, MD, personally performed the services described in this documentation, ascribed by Soniya Aleman RN in my presence, and it is both accurate and complete .
[2016-10-17] MEDS: clonazePAM 0.5 MG TABLET PO SCH (21:33)
[2016-10-17] MEDS: FONDAPARINUX 2.5 MG/0.5 ML SYRINGE SUBCUT SCH (21:33)
[2016-10-18 05:58] LABS: Basophils % 0.2 % (0.0-0.8); Eosinophils # 0.1 10*3/uL (0.0-0.87); Eosinophils % 1.4 % (0.00-10.9); Hematocrit 32.9 VOL% (35.7-47.0); Immature Granulocytes % 0.6 %; Immature Granulocytes Absolute 0.04 #; Lymphocytes # 1.1 10*3/uL (1.4-4.0); Lymphocytes % 16.4 % (21.3-54.2); Mean Corpuscular HGB Conc 33.4 GM/DL (32-36); Mean Corpuscular Hemoglobin 31 PG (27-34); Mean Corpuscular Volume 92.2 FL (87-102); Mean Platelet Volume 10.6 FL (9.6-12.0); Monocytes # 0.6 10*3/uL (0.11-0.8); Monocytes % 9.4 % (1.7-12.7); Neutrophils # 4.6 10*3/uL (1.4-7.4); Platelet Count 143 T/CUMM (130-400); Red Blood Count 3.57 MC/CUMM (3.8-5.5); Red Cell Distribution Width 13.4 % (9.3-17.3); White Blood Count 6.4 T/CUMM (4-12)
[2016-10-18 06:34] LABS: Band Neutrophils 4 % (0-10); Eosinophils 1 % (0-10); Hypochromasia 1+; Lymphocytes 11 % (20-55); Microcytosis 1+; Platelet Estimate Decreased; Segmented Neutrophils 75 % (50-85); Total Cells Counted 100
[2016-10-18 06:35] LABS: Osmolality,Calculated 275.7 MOS/KG (273-304); Potassium 4.3 MMOL/L (3.5-5.1)
--- NOTE | 2016-10-18 08:31 | Orthopedic Progress Note ---
Orthopedics - Subjective Interval history: Tolerating PT fair still planning for swing bed on Friday no new complaints Exam - Constitutional Vitals: Period Temp Pulse Resp BP Sys/Burks Pulse Ox Last 24 Hr 96.5 F-98.6 F 61-84 16-19 111-159/61-84 92-98 Results - Labs CBC & BMP: 10/18/16 05:16 10/18/16 05:16
[2016-10-18] MEDS: ASPIRIN EC 81 MG TABLET PO SCH (08:46)
[2016-10-18] MEDS: PREGABALIN 75 MG CAPSULE PO SCH ×3 (08:46→21:37)
[2016-10-18] MEDS: MELOXICAM 7.5 MG TABLET PO SCH ×2 (08:46→17:32)
[2016-10-18] MEDS: TICAGRELOR 90 MG TABLET PO SCH ×2 (08:46→21:37)
[2016-10-18] MEDS: DOCUSATE SODIUM 100 MG CAPSULE PO SCH ×2 (08:46→21:37)
[2016-10-18] MEDS: PANTOPRAZOLE 40 MG TABLET PO SCH ×2 (08:47→21:37)
--- NOTE | 2016-10-18 16:11 | XRay Report ---
XR chest 1V portable Indication: Shortness of breath. Chest one view: Comparison 03/31/2015. Left upper quadrant surgical clips are stable. Heart size remains normal. Thoracic aortic tortuosity is present but mild. Lungs are clear. Impression: No acute pulmonary disease. PROCEDURE INTERPRETED AT [facility] DEPARTMENT OF RADIOLOGY Final Report Signed by: Cody Johnson M.D.
--- NOTE | 2016-10-18 16:56 | Family Practice Progress Note ---
Family Practice - PN: Subj Interval history: Patient has continued to improve and reference to her knee replacement. She was up in chair and ambulated yesterday with physical therapy. Labs and vitals are stable. Physical examination is stable. Main problem today is patient has a known esophageal stricture. Apparently has been bothering her for some time and did not mention it until this admission.. Patient states that she is not able to eat soft foods are mostly liquids because they are hanging in her midesophagus.. Patient states she is afraid to eat anything now because of the stricture. Will consult Dr. Guevara to evaluate. Otherwise continue present treatment plan 10/18/16 patient continues to improve. Appetite is poor but otherwise doing well. States she can only eat limited foods because of the stricture. Appreciate GI consult and agree with recommendation. Reviewed lab and x-rays. Vitals are stable. Her physical examination is stable good pulses. We will continue present treatment plan. Apparently he has been scheduled to go to swing bed in [place] on Friday. Exam (Progress Note) - Constitutional Vitals: Period Temp Pulse Resp BP Sys/Burks Pulse Ox Last 24 Hr 97.0 F-98.6 F 69-84 16-19 118-148/58-84 97-100 Results - Labs CBC & BMP: 10/18/16 05:16 10/18/16 05:16 Assessment and Plan (1) Status post right knee replacement Status: Acute Assessment and plan: Patient is status post right total knee replacement. She is presently doing well with no acute problems noted. Current Visit: Yes (2) CAD (coronary artery disease) Status: Chronic Assessment and plan: Patient's coronary artery disease is stable with present medications. We'll monitor closely. Current Visit: Yes Qualifiers: Coronary Disease-Associated Artery/Lesion type: [place] artery [place] vs. transplanted heart: [place] heart Associated angina: without angina Qualified Code(s): I25.10 - Atherosclerotic heart disease of [place] coronary artery without angina pectoris (3) Status post insertion of drug-eluting stent into left anterior descending ( LAD) artery Status: Chronic Assessment and plan: Patient is presently stable on present medications. She's had recent cardiac evaluation is being followed by cardiology Current Visit: No (4) hyperlipidemia Status: Chronic Assessment and plan: Stable on present medications Current Visit: Yes (5) Hypertension Status: Chronic Current Visit: No (6) Peripheral neuropathy Status: Chronic Assessment and plan: Patient has nondiabetic peripheral neuropathy stable on present medications Current Visit: No (7) S/P gastric bypass Status: Chronic Assessment and plan: Patient is status post gastric bypass. No problems at present Current Visit: No Specialty Discharge - Follow Up or Referrals Follow up with: Ariel Huynh Jr., MD [Physician] - 11/13/16 9:20 am
[2016-10-18] MEDS: clonazePAM 0.5 MG TABLET PO SCH (21:37)
[2016-10-18] MEDS: FONDAPARINUX 2.5 MG/0.5 ML SYRINGE SUBCUT SCH (21:37)
--- NOTE | 2016-10-19 07:37 | Orthopedic Progress Note ---
Orthopedics - Subjective Interval history: No problems no complaints mobilizing well to swing bed tomorrow, except into layers Exam - Constitutional Vitals: Period Temp Pulse Resp BP Sys/Burks Pulse Ox Last 24 Hr 97.0 F-98.7 F 70-80 16-20 118-145/58-76 95-100 Results - Labs CBC & BMP: 10/18/16 05:16 10/18/16 05:16 Specialty Discharge - Follow Up or Referrals Follow up with: Ariel Huynh Jr., MD [Physician] - 11/13/16 9:20 am
--- NOTE | 2016-10-19 08:30 | Family Practice Progress Note ---
Family Practice - PN: Subj Interval history: Patient has continued to improve and reference to her knee replacement. She was up in chair and ambulated yesterday with physical therapy. Labs and vitals are stable. Physical examination is stable. Main problem today is patient has a known esophageal stricture. Apparently has been bothering her for some time and did not mention it until this admission.. Patient states that she is not able to eat soft foods are mostly liquids because they are hanging in her midesophagus.. Patient states she is afraid to eat anything now because of the stricture. Will consult Dr. Guevara to evaluate. Otherwise continue present treatment plan 10/18/16 patient continues to improve. Appetite is poor but otherwise doing well. States she can only eat limited foods because of the stricture. Appreciate GI consult and agree with recommendation. Reviewed lab and x-rays. Vitals are stable. Her physical examination is stable good pulses. We will continue present treatment plan. Apparently he has been scheduled to go to swing bed in [place] on Friday. 10/19/16 patient states she feels good this a.m. Sitting up in chair with good appetite. No new complaints noted. She is ambulating well and tolerating therapy. A.m. labs and vitals are stable. Physical examination is stable. Scheduled for swing bed in a.m. Exam (Progress Note) - Constitutional Vitals: Period Temp Pulse Resp BP Sys/Burks Pulse Ox Last 24 Hr 97.3 F-98.7 F 70-80 16-20 117-145/58-76 95-100 Results - Labs CBC & BMP: 10/18/16 05:16 10/18/16 05:16 Assessment and Plan (1) Status post right knee replacement Status: Acute Assessment and plan: Patient is status post right total knee replacement. She is presently doing well with no acute problems noted. Current Visit: Yes (2) CAD (coronary artery disease) Status: Chronic Assessment and plan: Patient's coronary artery disease is stable with present medications. We'll monitor closely. Current Visit: Yes Qualifiers: Coronary Disease-Associated Artery/Lesion type: [place] artery [place] vs. transplanted heart: [place] heart Associated angina: without angina Qualified Code(s): I25.10 - Atherosclerotic heart disease of [place] coronary artery without angina pectoris (3) Status post insertion of drug-eluting stent into left anterior descending ( LAD) artery Status: Chronic Assessment and plan: Patient is presently stable on present medications. She's had recent cardiac evaluation is being followed by cardiology Current Visit: No (4) hyperlipidemia Status: Chronic Assessment and plan: Stable on present medications Current Visit: Yes (5) Hypertension Status: Chronic Current Visit: No (6) Peripheral neuropathy Status: Chronic Assessment and plan: Patient has nondiabetic peripheral neuropathy stable on present medications Current Visit: No (7) S/P gastric bypass Status: Chronic Assessment and plan: Patient is status post gastric bypass. No problems at present Current Visit: No Specialty Discharge - Follow Up or Referrals Follow up with: Ariel Huynh Jr., MD [Physician] - 11/13/16 9:20 am
[2016-10-19] MEDS: ROSUVASTATIN 10 MG TABLET PO SCH (09:32)
[2016-10-19] MEDS: MELOXICAM 7.5 MG TABLET PO SCH ×2 (09:35→17:00)
[2016-10-19] MEDS: ASPIRIN EC 81 MG TABLET PO SCH (09:36)
[2016-10-19] MEDS: TICAGRELOR 90 MG TABLET PO SCH ×2 (09:36→20:07)
[2016-10-19] MEDS: PANTOPRAZOLE 40 MG TABLET PO SCH ×2 (09:36→20:07)
[2016-10-19] MEDS: DOCUSATE SODIUM 100 MG CAPSULE PO SCH ×2 (09:37→20:15)
[2016-10-19] MEDS: PREGABALIN 75 MG CAPSULE PO SCH ×3 (09:37→20:07)
[2016-10-19] MEDS: clonazePAM 0.5 MG TABLET PO SCH (20:07)
[2016-10-19] MEDS: FONDAPARINUX 2.5 MG/0.5 ML SYRINGE SUBCUT SCH (20:07)
--- NOTE | 2016-10-20 09:11 | Orthopedic Progress Note ---
Orthopedics - Subjective Interval history: No complaints tolerating PT and CPM well to swing bed today instructed Exam - Constitutional Vitals: Period Temp Pulse Resp BP Sys/Burks Pulse Ox Last 24 Hr 97.0 F-99.1 F 66-82 16-20 114-138/56-84 96-100 Results - Labs CBC & BMP: 10/18/16 05:16 10/18/16 05:16 Specialty Discharge - Follow Up or Referrals Follow up with: Ariel Huynh Jr., MD [Physician] - 11/13/16 9:20 am
--- NOTE | 2016-10-20 09:13 | Discharge Summary ---
Hospital Course - Hospital Course Hospital Course: Admitted for elective right total knee discharge to swing bed Diagnosis - Discharge Diagnosis (1) Osteoarthritis of right knee Status: Acute Specialty Discharge - Follow Up or Referrals Follow up with: Ariel Huynh Jr., MD [Physician] - 11/13/16 9:20 am Discharge Plan - Discharge Data Disposition: Swing Bed, Hos Based, Mc[facility] Aide Condition at Discharge: Stable Discharge Diet: advance to your usual diet Activity: as per physical therapy, increase activity as tolerated Hygiene: keep area(s) dry Weight Bearing at Discharge: weight bear as tolerated - Discharge Medications New Fondaparinux [Arixtra] 2.5 mg SUBCUT Q24H syringe HYDROcodone/ACETAMIN 7.5-325 [[place] 7.5-325] 2 tablet PO Q4H PRN #30 tablet PRN Reason: Moderate Pain unrelieved by 1 Continue Ticagrelor [Brilinta] 90 mg PO BID #60 tablet Nitroglycerin Sl Tab [Nitrostat] 0.4 mg SL Q5M PRN #30 tablet PRN Reason: Chest Pain Meclizine [Antivert] 25 mg PO QID PRN #0 tablet PRN Reason: Dizziness Aspirin EC Tab 81 mg PO DAILY Pregabalin [Lyrica] 150 mg PO TID Omeprazole [Prilosec] 20 mg PO BID Meloxicam 7.5 mg PO BID W/MEALS #60 tablet Rosuvastatin Calcium [Crestor] 5 mg PO QOTHER DAY clonazePAM [Klonopin] 1 mg PO BEDTIME - Follow Up or Referral Follow Up: Ariel Huynh Jr., MD [Physician] - 11/13/16 9:20 am - Forms/Instructions Instructions: Total Knee Replacement (DC) Additional Discharge Instructions: Discharge to swing bed at [facility] continue home medications Arixtra 5 more days and then simply aspirin a day. [place] for pain. She is weightbearing as tolerated total knee protocol with CPM unit. [place] to be removed and wound Steri-Stripped October 29. Follow-up with me 4 weeks Exam - Constitutional Vitals: Period Temp Pulse Resp BP Sys/Burks Pulse Ox Last 24 Hr 97.0 F-99.1 F 66-82 16-20 114-138/56-84 96-100 DS: Provider Date of admission: 10/15/16 05:14 Primary care physician: Felipe Japanese, DO Attending physician on admission: Ariel Huynh Jr., MD Consults: 10/15/16 06:59 Consult to Case Mgmt/Social Srvs [CONS] Routine Reason for Case Mgmt/Social Srvs: Rehab Home Health Equipment Consult Comment: Bedside Commode, CPM, Walker Consult to Occupational Therapy [CONS] Routine Reason for Occupational Therapy: Evaluate and Treat Consult Comment: ADL's Consult to Physical Therapy [CONS] Routine Reason for Physical Therapy: Evaluate and Treat Gait Training 10/15/16 07:02 Consult to Physician [CONS] Routine Comment: Consulting Provider: Felipe Ruggiero Consulting Provider Notified: Yes When should Consulting Provider be notified: Now Person Notified: yonas called Date Notified: 10/15/16 Time Notified: 10:55 10/15/16 10:51 Consult to Physician [CONS] Routine Comment: Consulting Provider: Дмитрий Strong Consulting Provider Notified: Yes When should Consulting Provider be notified: Now Person Notified: tessa called Date Notified: 10/15/16 Time Notified: 11:03 10/17/16 08:15 Consult to Physician [CONS] Routine Comment: Esophageal stricture Consulting Provider: Darrell Guevara Consulting Provider Notified: Yes When should Consulting Provider be notified: Now Person Notified: shazia called Date Notified: 10/17/16 Time Notified: 11:10 Discharging clinician: Ariel Huynh Jr., MD
[2016-10-20] MEDS: MELOXICAM 7.5 MG TABLET PO SCH (09:27)
[2016-10-20] MEDS: ASPIRIN EC 81 MG TABLET PO SCH (09:28)
[2016-10-20] MEDS: DOCUSATE SODIUM 100 MG CAPSULE PO SCH (09:29)
[2016-10-20] MEDS: TICAGRELOR 90 MG TABLET PO SCH (09:29)
[2016-10-20] MEDS: PREGABALIN 75 MG CAPSULE PO SCH (09:30)
[2016-10-20] MEDS: PANTOPRAZOLE 40 MG TABLET PO SCH (09:31)
[2016-10-20 11:34] VITALS: BP 135/69
== END 2016-10-20 11:15 | disposition swing bed (61) | DRG 470 ==
LOC: N.SDSINP 05:14 → N.3E 09:56
PROVIDERS: ADMIT Orthopaedic Surgery; ATTEND Orthopaedic Surgery